=== PATIENT | male | born 1945 | race Caucasian/White ===

== ENCOUNTER 2017-09-03 18:21 | Inpatient (IN) | payer MEDICARE, OTHER ==
[~2017-09-03] VITALS: Ht 190.5 cm; Wt 90.3 kg
[2017-09-03] VITALS (9 sets, daily range): BP systolic 165–231; BP diastolic 78–115; PULSE 54–75; RESP 16–18; TEMP 98–98.9; O2SAT 94–99
[~2017-09-03 18:21] MED LIST: ASPI325T PO; ASPI81 PO; TAB-TAB PO
[2017-09-03] MEDS ORDERED: SODIUM CHLORIDE 0.9% FLUSH 10 ML FLUSH IVF PRN (19:00)
--- NOTE | 2017-09-03 19:10 | RADRPT ---
EXAM DATE/TIME: 09/03/2017 19:03 [facility] COMPARISON: No previous studies available for comparison. INDICATIONS : Possible CVA, confusion. MEDICAL HISTORY : None. SURGICAL HISTORY : None. ENCOUNTER: Initial ACUITY: 1 day PAIN SCORE: 0/10 LOCATION: Bilateral chest FINDINGS: A single view of the chest demonstrates the lungs to be symmetrically aerated without evidence of mas s, infiltrate or effusion. Superimposition of bowel over the right hemidiaphragm. The cardiomediastin al contours are unremarkable. Osseous structures are intact. CONCLUSION: No acute disease. Momo Rebollar MD on September 03, 2017 at 19:08 Board Certified Radiologist. This report was verified electronically.
--- NOTE | 2017-09-03 19:34 | RADRPT ---
EXAM DATE/TIME: 09/03/2017 19:03 [facility] COMPARISON: No previous studies available for comparison. INDICATIONS : Transient ischemic attack. MEDICAL HISTORY : Transient global amnesia two years ago. Caffeine use. SURGICAL HISTORY : Appendectomy. ENCOUNTER: Initial ACUITY: 1 day PAIN SCORE: 0/10 LOCATION: Bilateral neck PEAK SYSTOLIC VELOCITIES (cm/sec): ICA/CCA RATIO: Right: 0.8 Left: 0.7 ICA: Right: 92.7 Left: 88.8 CCA: Right: 110.8 Left: 125.3 ECA: Right: 164.5 Left: 148.9 VERTEBRAL: Right: 87.7 antegrade Left: 70.8 antegrade Elevated flow velocities and ICA/CCA ratios have been found to correlate with increased degrees of vessel stenosis, calculated as percentage of diameter relative to a normal segment of distal ICA/CCA FINDINGS: RIGHT CAROTID: No significant stenosis is visualized. Scattered mild to moderate plaque. The waveforms are within n ormal limits. LEFT CAROTID: No significant stenosis is visualized. Scattered mild to moderate plaque. The waveforms are within no rmal limits. VERTEBRAL ARTERIES: Antegrade flow is seen in both vertebral arteries. MISCELLANEOUS: None. CONCLUSION: No hemodynamically significant stenosis in either carotid artery. Momo Rebollar MD on September 03, 2017 at 19:31 Board Certified Radiologist. This report was verified electronically.
--- NOTE | 2017-09-03 19:57 | PD ---
HPI Chief Complaint: Neuro Symptoms/ Deficits Time Seen by Provider: 18:36 Travel History International Travel<30 days: No Contact w/Intl Traveler<30days: No Traveled to known affect area: No History of Present Illness HPI Patient is a 71-year-old male presenting to emergency department for evaluation of nausea, brief episodes of confusion and a sense of impending doom patient states that last night he had a brief episode of nausea followed by a few seconds of not knowing where he was or what he was doing. This resolved and recurred this morning when he was getting his mail from the mailbox. Then while driving this afternoon he again felt that abrupt onset of nausea followed by 2-4 seconds of not knowing where he was. It happened again this afternoon while he was sitting in his study, it lasted a little bit longer this time and that is when he stated that he just didn't feel right but he couldn't put his finger on it. He denies any nausea, vomiting, chest pain, headache, visual changes, dizziness, abdominal pain. Patient denies any new stressors, sleep disturbance, appetite disturbance, new medications. He denies any significant past medical history, he exercises daily. He does have a history of transient global amnesia several years ago but states this is different in that he never experienced nausea or confusion. When the amnesic event occurred in the past he would not remember what he had done prior to the event occurring. PFSH Past Medical History Medical History: Denies Significant Hx Cancer: No Cardiovascular Problems: No Diminished Hearing: No Endocrine: No Genitourinary: No Immune Disorder: No Musculoskeletal: No Neurologic: Yes (transient global amnesia appox 2 yrs ago ) Psychiatric: No Reproductive: No Respiratory: No Past Surgical History Abdominal Surgery: Yes (APPENDECTOMY) Appendectomy: Yes Other Surgery: Yes Social History Alcohol Use: No Tobacco Use: No Substance Use: No Allergies-Medications (Allergen,Severity, Reaction): Coded Allergies: No Known Allergies (Verified Adverse Reaction, Unknown, 09/03/17) Reported Meds & Prescriptions Reported Meds & Active Scripts Active Aspirin 325 Mg Tab 325 Mg PO DAILY 30 Days Reported Multivitamin (Multivitamins) 1 Tab Tab 1 Tab PO DAILY Aspirin 81 Mg Tab 81 Mg PO DAILY 2 TABS DAILY Review of Systems Except as stated in HPI: all other systems reviewed are Neg Eyes: No: Blurred Vision HENT: No: Headaches, Lightheadedness Cardiovascular: No: Chest Pain or Discomfort, Tachycardia Respiratory: No: Shortness of Breath Gastrointestinal: Positive: Nausea Genitourinary: No: Dysuria Musculoskeletal: No: Myalgias Skin: Positive Change in Pigmentation (flushed cheeks) Neurologic: Positive: Other (confusion), No: Weakness, Dizziness, Syncope, Focal Abnormalities Physical Exam Narrative GENERAL: Well-developed, well-nourished, alert elderly gentleman. Resting comfortably in no acute distress. SKIN: Warm and dry. Face appears flushed. HEAD: Atraumatic. Normocephalic. EYES: Pupils equal and round. No scleral icterus. No injection or drainage. ENT: No nasal bleeding or discharge. Mucous membranes pink and moist. NECK: Trachea midline. No JVD. CARDIOVASCULAR: Regular rate and rhythm. RESPIRATORY: No accessory muscle use. Clear to auscultation. Breath sounds equal bilaterally. GASTROINTESTINAL: Abdomen soft, non-tender, nondistended. Hepatic and splenic margins not palpable. MUSCULOSKELETAL: Extremities without clubbing, cyanosis, or edema. No obvious deformities. NEUROLOGICAL: Awake and alert. No obvious cranial nerve deficits. Motor grossly within normal limits. Five out of 5 muscle strength in the arms and legs. Normal speech. PSYCHIATRIC: Appropriate mood and affect; insight and judgment normal. Data Data Last Documented VS Vital Signs Date Time Temp Pulse Resp B/P (MAP) Pulse Ox O2 Delivery O2 Flow Rate FiO2 09/03/17 19:25 60 16 165/78 (107) 96 Room Air 09/03/17 18:23 98.0 Orders Orders Electrocardiogram (09/03/17 18:49) Prothrombin Time / Inr (Pt) (09/03/17 18:49) Act Partial Throm Time (Ptt) (09/03/17 18:49) Complete Blood Count With Diff (09/03/17 18:49) Comprehensive Metabolic Panel (09/03/17 18:49) Creatine Kinase (Cpk) (09/03/17 18:49) Troponin I (09/03/17 18:49) Urinalysis - C+S If Indicated (09/03/17 18:49) Ct Brain W/O Iv Contrast(Rout) (09/03/17 18:49) Chest, Single Ap (09/03/17 18:49) Ecg Monitoring (09/03/17 18:49) Iv Access Insert/Monitor (09/03/17 18:49) Oximetry (09/03/17 18:49) Sodium Chloride 0.9% Flush (Ns Flush) (09/03/17 19:00) Us Carotid Arteries Comp Bilat (09/03/17 ) Aspirin Chew (Aspirin Chew) (09/03/17 20:45) Nitroglycerin 2% Oint (Nitroglycerin 2% (09/03/17 20:45) Labs Laboratory Tests Test 09/03/17 19:00 White Blood Count 10.8 TH/MM3 Red Blood Count 5.36 MIL/MM3 Hemoglobin 15.9 GM/DL Hematocrit 47.1 % Mean Corpuscular Volume 87.8 FL Mean Corpuscular Hemoglobin 29.7 PG Mean Corpuscular Hemoglobin Concent 33.9 % Red Cell Distribution Width 14.0 % Platelet Count 171 TH/MM3 Mean Platelet Volume 10.5 FL Neutrophils (%) (Auto) 59.5 % Lymphocytes (%) (Auto) 35.4 % Monocytes (%) (Auto) 4.3 % Eosinophils (%) (Auto) 0.5 % Basophils (%) (Auto) 0.3 % Neutrophils # (Auto) 6.4 TH/MM3 Lymphocytes # (Auto) 3.8 TH/MM3 Monocytes # (Auto) 0.5 TH/MM3 Eosinophils # (Auto) 0.1 TH/MM3 Basophils # (Auto) 0.0 TH/MM3 CBC Comment DIFF FINAL Differential Comment Prothrombin Time 11.3 SEC Prothromb Time International Ratio 1.0 RATIO Activated Partial Thromboplast Time 27.2 SEC Blood Urea Nitrogen 18 MG/DL Creatinine 1.14 MG/DL Random Glucose 107 MG/DL Total Protein 8.2 GM/DL Albumin 4.0 GM/DL Calcium Level 9.0 MG/DL Alkaline Phosphatase 90 U/L Aspartate Amino Transf (AST/SGOT) 34 U/L Alanine Aminotransferase (ALT/SGPT) 35 U/L Total Bilirubin 0.5 MG/DL Sodium Level 135 MEQ/L Potassium Level 3.7 MEQ/L Chloride Level 100 MEQ/L Carbon Dioxide Level 27.5 MEQ/L Anion Gap 8 MEQ/L Estimat Glomerular Filtration Rate 63 ML/MIN Total Creatine Kinase 172 U/L Troponin I 0.14 NG/ML MDM Medical Decision Making Medical Screen Exam Complete: Yes Emergency Medical Condition: Yes Medical Record Reviewed: Yes Interpretation(s) Laboratory Tests Test 09/03/17 19:00 White Blood Count 10.8 TH/MM3 Red Blood Count 5.36 MIL/MM3 Hemoglobin 15.9 GM/DL Hematocrit 47.1 % Mean Corpuscular Volume 87.8 FL Mean Corpuscular Hemoglobin 29.7 PG Mean Corpuscular Hemoglobin Concent 33.9 % Red Cell Distribution Width 14.0 % Platelet Count 171 TH/MM3 Mean Platelet Volume 10.5 FL Neutrophils (%) (Auto) 59.5 % Lymphocytes (%) (Auto) 35.4 % Monocytes (%) (Auto) 4.3 % Eosinophils (%) (Auto) 0.5 % Basophils (%) (Auto) 0.3 % Neutrophils # (Auto) 6.4 TH/MM3 Lymphocytes # (Auto) 3.8 TH/MM3 Monocytes # (Auto) 0.5 TH/MM3 Eosinophils # (Auto) 0.1 TH/MM3 Basophils # (Auto) 0.0 TH/MM3 CBC Comment DIFF FINAL Differential Comment Prothrombin Time 11.3 SEC Prothromb Time International Ratio 1.0 RATIO Activated Partial Thromboplast Time 27.2 SEC Blood Urea Nitrogen 18 MG/DL Creatinine 1.14 MG/DL Random Glucose 107 MG/DL Total Protein 8.2 GM/DL Albumin 4.0 GM/DL Calcium Level 9.0 MG/DL Alkaline Phosphatase 90 U/L Aspartate Amino Transf (AST/SGOT) 34 U/L Alanine Aminotransferase (ALT/SGPT) 35 U/L Total Bilirubin 0.5 MG/DL Sodium Level 135 MEQ/L Potassium Level 3.7 MEQ/L Chloride Level 100 MEQ/L Carbon Dioxide Level 27.5 MEQ/L Anion Gap 8 MEQ/L Estimat Glomerular Filtration Rate 63 ML/MIN Total Creatine Kinase 172 U/L Troponin I 0.14 NG/ML Last Impressions Head CT 09/03/[id number] Signed Impressions: Service Date/Time: Sunday, September 03, 2017 19:34 - CONCLUSION: Unremarkable CT brain. No change. oMmo Rebollar MD Chest X-Ray 09/03/[id number] Signed Impressions: Service Date/Time: Sunday, September 03, 2017 19:03 - CONCLUSION: No acute disease. Momo Rebollar MD Carotid Artery Ultrasound 09/03/17 0000 Signed Impressions: Service Date/Time: Sunday, September 03, 2017 19:03 - CONCLUSION: No hemodynamically significant stenosis in either carotid artery. Momo Rebollar MD Vital Signs Date Time Temp Pulse Resp B/P (MAP) Pulse Ox O2 Delivery O2 Flow Rate FiO2 09/03/17 19:25 60 16 165/78 (107) 96 Room Air 09/03/17 18:52 63 194/94 (127) 09/03/17 18:45 75 18 231/115 (153) 99 Room Air 09/03/17 18:23 98.0 64 16 210/98 (135) 99 Room Air Differential Diagnosis ACC vs CVA versus ICH versus NSTEMI VS other Narrative Course Pt presented for evaluation after several episodes of abrupt nausea followed by confusion that lasted for 4-6 seconds, this evening it lasted longer and patient had an impending sense of doom. Pt was markedly hypertensive on arrival with no past history. Labs and imaging ordered and pending. Initial EKG read by my attending shows sinus bradycardia with a rate of 56. CXR is negative CT of the brain is unremarkable. Carotid US with no hemodynamically significant stenosis in either carotid artery. CBC is unremarkable Troponin is 0.14, chemistry is otherwise unremarkable. ASA 324mg and nitropaste ordered. Discussed findings with patient and . Also discussed with my attending physician. Dr. Corbin accepted admission, orders placed. Diagnosis Primary Impression: Hypertensive emergency Additional Impression: NSTEMI (non-ST elevated myocardial infarction) Admitting Information Admitting Physician Requests: Admit Condition: Stable DanielTracey rochaLacey ARNP Sep 03, 2017 19:57
--- NOTE | 2017-09-03 20:01 | RADRPT ---
EXAM DATE/TIME: 09/03/2017 19:34 [facility] COMPARISON: CT BRAIN W/O CONTRAST, August 24, 2011, 17:25. INDICATIONS : Altered mental status. RADIATION DOSE: 56.35 CTDIvol (mGy) MEDICAL HISTORY : None SURGICAL HISTORY : None. ENCOUNTER: Initial ACUITY: 1 day PAIN SCALE: 0/10 LOCATION: cranial TECHNIQUE: Multiple contiguous axial images were obtained of the head. Using automated exposure control and adj ustment of the mA and/or kV according to patient size, radiation dose was kept as low as reasonably a chievable to obtain optimal diagnostic quality images. DICOM format image data is available electro nically for review and comparison. FINDINGS: CEREBRUM: The ventricles are normal for age. No evidence of midline shift, mass lesion, hemorrhage or acute in farction. No extra-axial fluid collections are seen. POSTERIOR FOSSA: The cerebellum and brainstem are intact. The 4th ventricle is midline. The cerebellopontine angle i s unremarkable. EXTRACRANIAL: The visualized portion of the orbits is intact. SKULL: The calvaria is intact. No evidence of skull fracture. CONCLUSION: Unremarkable CT brain. No change. Momo Rebollar MD on September 03, 2017 at 19:58 Board Certified Radiologist. This report was verified electronically.
[2017-09-03 20:03] LABS: AUTOMATED NEUTROPHIL # 6.4 TH/MM3 (1.8-7.7); BASOPHIL % 0.3 % (0.0-2.0); EOSINOPHIL # 0.1 TH/MM3 (0-0.4); EOSINOPHIL % 0.5 % (0.0-4.0); HEMATOCRIT 47.1 % (39.0-51.0); HEMO FLAGS DIFF FINAL; LYMPH % 35.4 % (9.0-44.0); LYMPHOCYTE # 3.8 TH/MM3 (1.0-4.8); MEAN CELL VOLUME 87.8 FL (80.0-100.0); MEAN CORPUSCULAR HEMOGLOBIN 29.7 PG (27.0-34.0); MEAN CORPUSCULAR HGB CONC 33.9 % (32.0-36.0); MONO % 4.3 % (0.0-8.0); NEUT % 59.5 % (16.0-70.0); PLATELET COUNT 171 TH/MM3 (150-450); RED BLOOD COUNT 5.36 MIL/MM3 (4.50-5.90); WHITE BLOOD COUNT 10.8 TH/MM3 (4.0-11.0)
[2017-09-03 20:18] LABS: APTT (PATIENT) 27.2 SEC (24.3-30.1); PROTHROMBIN TIME - PATIENT 11.3 SEC (9.8-11.6)
[2017-09-03 20:32] LABS: ANION GAP 8 MEQ/L (5-15); AST (GOT) 34 U/L (15-37); BICARBONATE 27.5 MEQ/L (21.0-32.0); BLOOD UREA NITROGEN 18 MG/DL (7-18); CHLORIDE 100 MEQ/L (98-107); GLOMERULAR FILTRATION RATE 63 ML/MIN (>89); POTASSIUM 3.7 MEQ/L (3.5-5.1); SODIUM (NA) 135 MEQ/L (136-145)
[2017-09-03 20:34] LABS: ALKALINE PHOSPHATASE 90 U/L (45-117); ALT (GPT) 35 U/L (12-78); CREATINE KINASE 172 U/L (39-308); TOTAL BILIRUBIN ADULT 0.5 MG/DL (0.2-1.0)
[2017-09-03] MEDS ORDERED: ASPIRIN 81 MG CHEW TAB CHEW ONE (20:45)
[2017-09-03] MEDS ORDERED: NITROGLYCERIN 2% OINT 1 GM PACKET TOPICAL ONE (20:45)
[2017-09-03] MEDS ORDERED: SODIUM CHLORIDE 0.9% FLUSH 10 ML FLUSH IV FLUSH PRN (21:00)
[2017-09-03] MEDS: SODIUM CHLORIDE 0.9% FLUSH 10 ML FLUSH IV FLUSH SCH (21:21)
[2017-09-03] MEDS ORDERED: MULTTAB4 (21:59)
[2017-09-03] MEDS ORDERED: ASPI81CH7 PO (21:59)
[2017-09-03] MEDS: SODIUM CHLOR 0.9% 1000 ML INJ 1,000 ML IV SCH (23:45)
[2017-09-03] MEDS ORDERED: hydrALAZINE HCL 20 MG/ML VIAL IV PUSH PRN (23:45)
--- NOTE | 2017-09-03 23:46 | HHI.HP ---
[facility] Service Family Medicine Primary Care Physician [place] MD Admission Diagnosis NSTEMI, HYPERTENSIVE EMERGENCY Diagnoses: International Travel<30 Days: No Contact w/Intl Traveler<30days: No Known Affected Area: No History of Present Illness 71-year-old male presents to the emergency department for 2 episodes of confusion with accompanying nausea. The patient reports yesterday when he was walking to his mailbox he felt nausea and an overwhelming sense of doom followed by immediate confusion that spontaneously resolved. He experienced a similar sensation this afternoon when driving back from shopping with his . He reports he instantaneously became nauseated and felt confused, he couldn't remember where he was driving. The sensation lasted approximately 2-4 seconds and then resolved. He denies any chest pain or shortness of breath. He has no past medical history and exercises daily. On evaluation in the emergency department he was found to have a troponin of 0.14 and a blood pressure of 231/ 115. He states he takes his blood pressure regularly and it is usually 111 systolic. EKG showed normal sinus rhythm without ST segment elevations or depressions. Head CT negative for acute disease. Carotid ultrasound without stenosis bilaterally. Review of Systems Other Denies fever or chills Denies blurry vision, otorrhea, rhinorrhea Denies sore throat and cough No chest pain, palpitations, shortness of breath No abdominal pain Denies constipation/diarrhea/vomiting. Positive nausea Denies muscle pain/weakness No rashes Past Family Social History Past Medical History None Past Surgical History Appendectomy Reported Medications Reported Meds & Active Scripts Active Reported Multi Vitamin Mens (Multiple Vitamin) 1 Tab Tab Aspirin Children's (Aspirin) 81 Mg Chew 81 Mg PO DAILY Allergies: Coded Allergies: No Known Allergies (Verified Allergy, Unknown, 09/03/17) Family History No family history of heart disease or diabetes mellitus Social History Never smoker. No alcohol, illicit drugs Physical Exam Vital Signs Vital Signs Date Time Temp Pulse Resp B/P (MAP) Pulse Ox O2 Delivery O2 Flow Rate FiO2 09/03/17 21:56 09/03/17 21:30 61 16 182/88 (119) 95 Room Air 09/03/17 20:30 64 16 191/89 (123) 94 Room Air 09/03/17 19:25 60 16 165/78 (107) 96 Room Air 09/03/17 18:52 63 194/94 (127) 09/03/17 18:45 75 18 231/115 (153) 99 Room Air 09/03/17 18:23 98.0 64 16 210/98 (135) 99 Room Air Physical Exam GENERAL: male sitting up in chair SKIN: No rashes, ecchymoses or lesions. Cool and dry. HEAD: Atraumatic. Normocephalic. No temporal or scalp tenderness. EYES: Pupils equal round and reactive. Extraocular motions intact. No scleral icterus. No injection or drainage. ENT: Nose without bleeding, purulent drainage or septal hematoma. Throat without erythema, tonsillar hypertrophy or exudate. Uvula midline. Airway patent. NECK: Trachea midline. No JVD or lymphadenopathy. Supple, nontender, no meningeal signs. CARDIOVASCULAR: Regular rate and rhythm without murmurs, gallops, or rubs. RESPIRATORY: Clear to auscultation. Breath sounds equal bilaterally. No wheezes , rales, or rhonchi. GASTROINTESTINAL: Abdomen soft, non-tender, nondistended. No hepato-splenomegaly , or palpable masses. No guarding. MUSCULOSKELETAL: Extremities without clubbing, cyanosis, or edema. No joint tenderness, effusion, or edema noted. No calf tenderness. Negative Homans sign bilaterally. NEUROLOGICAL: Awake and alert. Cranial nerves II through XII intact. Motor and sensory grossly within normal limits. Normal speech. Laboratory Laboratory Tests Test 09/03/17 19:00 09/03/17 21:25 White Blood Count 10.8 Red Blood Count 5.36 Hemoglobin 15.9 Hematocrit 47.1 Mean Corpuscular Volume 87.8 Mean Corpuscular Hemoglobin 29.7 Mean Corpuscular Hemoglobin Concent 33.9 Red Cell Distribution Width 14.0 Platelet Count 171 Mean Platelet Volume 10.5 Neutrophils (%) (Auto) 59.5 Lymphocytes (%) (Auto) 35.4 Monocytes (%) (Auto) 4.3 Eosinophils (%) (Auto) 0.5 Basophils (%) (Auto) 0.3 Neutrophils # (Auto) 6.4 Lymphocytes # (Auto) 3.8 Monocytes # (Auto) 0.5 Eosinophils # (Auto) 0.1 Basophils # (Auto) 0.0 CBC Comment DIFF FINAL Differential Comment Prothrombin Time 11.3 Prothromb Time International Ratio 1.0 Activated Partial Thromboplast Time 27.2 Blood Urea Nitrogen 18 Creatinine 1.14 Random Glucose 107 Total Protein 8.2 Albumin 4.0 Calcium Level 9.0 Alkaline Phosphatase 90 Aspartate Amino Transf (AST/SGOT) 34 Alanine Aminotransferase (ALT/SGPT) 35 Total Bilirubin 0.5 Sodium Level 135 Potassium Level 3.7 Chloride Level 100 Carbon Dioxide Level 27.5 Anion Gap 8 Estimat Glomerular Filtration Rate 63 Total Creatine Kinase 172 Troponin I 0.14 B-Type Natriuretic Peptide 13 Result Diagram: 09/03/17189909/03/171899 Caprini VTE Risk Assessment Caprini VTE Risk Assessment: Mod/High Risk (score >= 2) Caprini Risk Assessment Model Point Value = 1 Point Value = 2 Point Value = 3 Point Value = 5 Age 41-60 Minor surgery BMI > 25 kg/m2 Swollen legs Varicose veins or History of unexplained or recurrent spontaneous Oral contraceptives or hormone replacement Sepsis (< 1 month) Serious lung disease, including pneumonia (< 1 month) Abnormal pulmonary function Acute myocardial infarction Congestive heart failure (< 1 month) History of inflammatory bowel disease Medical patient at bed rest Age 61-74 Arthroscopic surgery Major open surgery (> 45 min) Laparoscopic surgery (> 45 min) Malignancy Confined to bed (> 72 hours) Immobilizing plaster cast Central venous access Age >= 75 History of VTE Family history of VTE Factor V Leiden Prothrombin [id number] Lupus anticoagulant Anticardiolipin antibodies Elevated serum homocysteine Heparin-induced thrombocytopenia Other congenital or acquired thrombophilia Stroke (< 1 month) Elective arthroplasty Hip, pelvis, or leg fracture Acute spinal cord injury (< 1 month) Prophylaxis Regimen Total Risk Factor Score Risk Level Prophylaxis Regimen 0-1 Low Early ambulation 2 Moderate Order ONE of the following: *Sequential Compression Device (SCD) *Heparin 5000 units SQ BID 3-4 Higher Order ONE of the following medications: *Heparin 5000 units SQ TID *Enoxaparin/Lovenox 40 mg SQ daily (WT < 150 kg, CrCl > 30 mL/min) *Enoxaparin/Lovenox 30 mg SQ daily (WT < 150 kg, CrCl > 10-29 mL/min) *Enoxaparin/Lovenox 30 mg SQ BID (WT < 150 kg, CrCl > 30 mL/min) AND/OR *Sequential Compression Device (SCD) 5 or more Highest Order ONE of the following medications: *Heparin 5000 units SQ TID (Preferred with Epidurals) *Enoxaparin/Lovenox 40 mg SQ daily (WT < 150 kg, CrCl > 30 mL/min) *Enoxaparin/Lovenox 30 mg SQ daily (WT < 150 kg, CrCl > 10-29 mL/min) *Enoxaparin/Lovenox 30 mg SQ BID (WT < 150 kg, CrCl > 30 mL/min) AND *Sequential Compression Device (SCD) Assessment and Plan Assessment and Plan 71-year-old male with no significant past medical history presents with multiple episodes of nausea and confusion. Troponin elevated in the emergency department. 1. Elevated troponin EKG showed normal sinus rhythm without ST segment elevations or depressions, reviewed by wv Troponin 0.14 ACS workup pending; serial troponins/EKGs If troponin further elevates, will start heparin drip 2. Hypertensive crisis Hydralazine when necessary Monitor Patient does not have a history of HTN 3. Nausea/confusion Unclear etiology, cardiac vs neurologic in origin Head CT negative for acute intracranial process Patient with history of global amnesia Carotid US negative MRI/MRA brain pending ECHO pending FEN NPO NS at 84 cc/hr Electrolytes: monitor and replete prn Heparin Case discussed with ER physician at length Physician Certification 2 Midnight Certification Type: Admission for Inpatient Services Order for Inpatient Services The services are ordered in accordance with Medicare regulations or non- Medicare payer requirements, as applicable. In the case of services not specified as inpatient-only, they are appropriately provided as inpatient services in accordance with the 2-midnight benchmark. Estimated LOS (days): 2 2 days is the estimated time the patient will need to remain in the hospital, assuming treatment plan goals are met and no additional complications. Post-Hospital Plan: Not yet determined Sakshi Corbin MD Sep 03, 2017 23:46
[2017-09-04] VITALS (10 sets, daily range): BP systolic 140–186; BP diastolic 65–87; PULSE 50–71; RESP 16–20; TEMP 97.7–97.9; O2SAT 93–97
[2017-09-04 02:01] LABS: AUTOMATED NEUTROPHIL # 5.6 TH/MM3 (1.8-7.7); BASOPHIL % 0.4 % (0.0-2.0); EOSINOPHIL # 0.1 TH/MM3 (0-0.4); HEMATOCRIT 43.1 % (39.0-51.0); HEMO FLAGS DIFF FINAL; LYMPH % 33.8 % (9.0-44.0); LYMPHOCYTE # 3.2 TH/MM3 (1.0-4.8); MEAN CELL VOLUME 88.3 FL (80.0-100.0); MEAN CORPUSCULAR HEMOGLOBIN 29.9 PG (27.0-34.0); MEAN CORPUSCULAR HGB CONC 33.9 % (32.0-36.0); MONO % 6.2 % (0.0-8.0); NEUT % 58.6 % (16.0-70.0); PLATELET COUNT 149 TH/MM3 (150-450); RED BLOOD COUNT 4.89 MIL/MM3 (4.50-5.90); WHITE BLOOD COUNT 9.6 TH/MM3 (4.0-11.0)
[2017-09-04 02:26] LABS: BICARBONATE 30.1 MEQ/L (21.0-32.0); POTASSIUM 3.5 MEQ/L (3.5-5.1)
[2017-09-04 02:29] LABS: HDL CHOLESTEROL 36.2 MG/DL (40.0-60.0)
[2017-09-04] MEDS: NITROGLYCERIN 2% OINT 1 GM PACKET TOPICAL SCH ×5 (03:14→23:38)
--- NOTE | 2017-09-04 05:07 | EKG ---
Date Performed: 09/03/2017 Time Performed: 19:26:31 PTAGE: 71 years EKG: Baseline artifact present SINUS BRADYCARDIA BORDERLINE ECG No significant change from prior electrocardiogram. PREVIOUS TRACING : 08/25/2011 07.49 DOCTOR: Frederick Hsu Interpretating Date/Time 09/04/2017 05:07:26
[2017-09-04] MEDS: HEPARIN SODIUM - SQ 10,000 UNITS/ML VIAL SQ SCH ×3 (05:39→21:15)
[2017-09-04] MEDS: SODIUM CHLORIDE 0.9% FLUSH 10 ML FLUSH IV FLUSH SCH ×2 (08:02→21:00)
[2017-09-04] MEDS: ASPIRIN 325 MG TAB PO SCH (08:04)
--- NOTE | 2017-09-04 09:14 | EKG ---
Date Performed: 09/04/2017 Time Performed: 07:28:28 PTAGE: 71 years EKG: SINUS BRADYCARDIA BORDERLINE ECG No significant change from prior electrocardiogram. PREVIOUS TRACING : 09/03/2017 19.26 DOCTOR: Frederick Hsu Interpretating Date/Time 09/04/2017 09:13:15
[2017-09-04] MEDS: SODIUM CHLOR 0.9% 1000 ML INJ 1,000 ML IV SCH (13:24)
--- NOTE | 2017-09-04 13:57 | ECHRPT ---
Indication: CVA/TIA CONCLUSIONS The left ventricular systolic function is normal with an estimated ejection fraction in the range of 60-65%. Wall thickness is normal. Normal left ventricular size. There is trace tricuspid valve regurgitation. The estimated pulmonary arterial pressure is 24.9 mmHg. Czzry-tr-goyb mitral valve regurgitation. BP: 145 / 74 HR: 52 Rhythm: Other MEASUREMENTS (Male / Female) Normal Values Technical Quality:Fair 2D ECHO LV Diastolic Diameter PLAX 4.5 cm 4.2 - 5.9 / 3.9 - 5.3 cm LV Systolic Diameter PLAX 3.3 cm IVS Diastolic Thickness 1.0 cm 0.6 - 1.0 / 0.6 - 0.9 cm LVPW Diastolic Thickness 1.0 cm 0.6 - 1.0 / 0.6 - 0.9 cm LV Relative Wall Thickness 0.4 LVOT Diameter 2.0 cm M-MODE Aortic Root Diameter MM 3.0 cm LA Systolic Diameter MM 3.2 cm LA Ao Ratio MM 1.1 AV Cusp Separation MM 2.0 cm DOPPLER AV Peak Velocity 155.0 cm/s AV Peak Gradient 9.6 mmHg LVOT Peak Velocity 109.0 cm/s LVOT Peak Gradient 4.8 mmHg AV Area Cont Eq pk 2.2 cm MR Peak Velocity 223.0 cm/s MR Peak Gradient 19.9 mmHg Mitral E Point Velocity 79.0 cm/s Mitral A Point Velocity 36.5 cm/s Mitral E to A Ratio 2.2 LV E' Lateral Velocity 13.5 cm/s Mitral E to LV E' Lateral Ratio 5.9 LV E' Septal Velocity 8.0 cm/s Mitral E to LV E' Septal Ratio 9.9 TR Peak Velocity 193.0 cm/s TR Peak Gradient 14.9 mmHg Right Atrial Pressure 10.0 mmHg Pulmonary Artery Systolic Pressu 24.9 mmHg Right Ventricular Systolic Press 24.9 mmHg PV Peak Velocity 105.0 cm/s PV Peak Gradient 4.4 mmHg FINDINGS LEFT VENTRICLE The left ventricular systolic function is normal with an estimated ejection fraction in the range of 60-65%. Wall thickness is normal. Normal left ventricular size. RIGHT VENTRICLE Normal right ventricular size and systolic function. LEFT ATRIUM The left atrial size is normal. RIGHT ATRIUM The right atrial size is normal. ATRIAL SEPTUM Normal atrial septal thickness without atrial level shunting by limited color doppler interrogation. AORTA The aortic root and proximal ascending aorta are normal in size on limited imaging. MITRAL VALVE [id number] mitral valve regurgitation. AORTIC VALVE Trileaflet aortic valve. No aortic valve stenosis or regurgitation. TRICUSPID VALVE There is trace tricuspid valve regurgitation. The estimated pulmonary arterial pressure is 24.9 mmHg. PULMONARY VALVE No pulmonary valve regurgitation or stenosis. VESSELS The inferior vena cava is normal in size. PERICARDIUM No pericardial effusion. Prieto Valles MD, FACC, [facility] [place] (Electronically Signed) Final Date:04 September 2017 13:55
--- NOTE | 2017-09-04 17:04 | RADRPT ---
EXAM DATE/TIME: 09/04/2017 16:15 [facility] COMPARISON: No previous studies available for comparison. INDICATIONS : 2 episodes of confusion with accompanying nausea. MEDICAL HISTORY : None. SURGICAL HISTORY : Appendectomy. PTERYGIUM REMOVED FROM EYE ENCOUNTER: Subsequent ACUITY: 2 day PAIN SCORE: 0/10 LOCATION: cranial Please note a normal MRA of the brain does not entirely exclude the possibility of a small aneurysm, nor the possibility of distal intracranial vessel disease. TECHNIQUE: 3D time of flight MRA was performed. Source images, multiplanar STS MIP, and 3D volume MIP reconstru ctions were reviewed. 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 Origin of the r ight posterior cerebral artery is . The right vertebral artery is diminutive. There is no eviden ce of major vessel occlusion or stenosis. No aneurysm or vascular malformation is identified. CONCLUSION: No acute [place] vascular findings Gerald Kate MD on September 04, 2017 at 17:00 Board Certified Radiologist. This report was verified electronically.
--- NOTE | 2017-09-04 17:06 | RADRPT ---
EXAM DATE/TIME: 09/04/2017 16:15 [facility] COMPARISON: CT BRAIN W/O CONTRAST, September 03, 2017, 19:34. INDICATIONS : 2 episodes of confusion with accompanying nausea. MEDICAL HISTORY : None. SURGICAL HISTORY : Appendectomy. Pterygium removed from eye ENCOUNTER: Subsequent ACUITY: 2 day PAIN SCORE: 0/10 LOCATION: cranial TECHNIQUE: Multiplanar, multisequence MRI of the brain was performed without contrast. FINDINGS: CEREBRUM: The ventricles are normal for age. No evidence of midline shift, mass lesion, hemorrhage or acute in farction. No extraaxial fluid collections are seen. The pituitary gland and suprasellar cistern are normal in configuration. WHITE MATTER: No significant signal abnormalities are seen in the white matter. POSTERIOR FOSSA: The cerebellum and brainstem are intact. The 4th ventricle is midline. The cerebellopontine angle is unremarkable. The cerebellar tonsils are normal in position. DIFFUSION IMAGING: No focal areas of restricted diffusion are seen. No evidence of acute infarction. EXTRACRANIAL: There is mucosal disease present in the left maxillary sinus.. CONCLUSION: No acute intracranial findings. Gerald Kate MD on September 04, 2017 at 17:02 Board Certified Radiologist. This report was verified electronically.
--- NOTE | 2017-09-04 17:51 | HHI.PR ---
Subjective Remarks Patient denies cp/sob. Denies confusion or dizziness. Denies headache. Objective Vitals Vital Signs Date Time Temp Pulse Resp B/P (MAP) Pulse Ox O2 Delivery O2 Flow Rate FiO2 09/04/17 12:30 55 09/04/17 12:00 97.9 50 20 144/70 (94) 93 09/04/17 08:00 53 09/04/17 08:00 97.8 54 20 170/81 (110) 93 09/04/17 08:00 Room Air 09/04/17 04:03 52 09/04/17 04:00 97.8 52 18 145/74 (97) 97 09/04/17 00:00 97.7 51 18 143/72 (95) 95 09/03/17 23:48 55 09/03/17 22:55 Room Air 09/03/17 22:55 58 09/03/17 21:56 09/03/17 21:54 98.9 54 18 177/86 (116) 97 09/03/17 21:30 61 16 182/88 (119) 95 Room Air 09/03/17 20:30 64 16 191/89 (123) 94 Room Air 09/03/17 20:00 Room Air 09/03/17 19:25 60 16 165/78 (107) 96 Room Air 09/03/17 18:52 63 194/94 (127) 09/03/17 18:45 75 18 231/115 (153) 99 Room Air 09/03/17 18:23 98.0 64 16 210/98 (135) 99 Room Air I/O 09/03/17 09/03/17 09/03/17 09/04/17 09/04/17 09/04/17 07:00 15:00 23:00 07:00 15:00 23:00 Intake Total 515 ml Output Total 0 ml Balance 515 ml Intake Oral 0 ml IV Total 515 ml Output Urine Total 0 ml # Voids 2 # Bowel Movements 0 Result Diagram: 09/04/1713809/04/17138 Imaging Last Impressions Head Magnetic Resonance Angiography 09/04/17 0000 Signed Impressions: Service Date/Time: Monday, September 04, 2017 16:15 - CONCLUSION: No acute [place] vascular findings Gerald Kate MD Brain MRI 09/04/17 0000 Signed Impressions: Service Date/Time: Monday, September 04, 2017 16:15 - CONCLUSION: No acute intracranial findings. Gerald Kate MD Head CT [id number]/03/[id number] Signed Impressions: Service Date/Time: Sunday, September 03, 2017 19:34 - CONCLUSION: Unremarkable CT brain. No change. Momo Rebollar MD Chest X-Ray 09/03/171848 Signed Impressions: Service Date/Time: Sunday, September 03, 2017 19:03 - CONCLUSION: No acute disease. Momo Rebollar MD Carotid Artery Ultrasound 09/03/17 0000 Signed Impressions: Service Date/Time: Sunday, September 03, 2017 19:03 - CONCLUSION: No hemodynamically significant stenosis in either carotid artery. Momo Rebollar MD Objective Remarks AAOx3 PERRLA Clear lungs BL S1S2 RRR, no MRG abdomen soft, nt, nd Medications and IVs Current Medications Medications (Trade) Dose Ordered Sig/Raul Route Start Time Stop Time Status Last Admin (NS Flush) 2 ml BID IV FLUSH 09/03/17 21:00 09/03/17 21:21 (NS Flush) 2 ml UNSCH PRN IV FLUSH 09/03/17 21:00 (Aspirin) 325 mg DAILY PO 09/04/17 09:00 09/04/17 08:04 (Nitroglycerin 2% Oint) 0.5 inch Q6HR TOPICAL 09/04/17 03:00 09/04/17 17:21 (Heparin Inj) 5,000 units Q8HR SQ 09/04/17 06:00 09/04/17 13:24 (Apresoline Inj) 10 mg Q4H PRN IV PUSH 09/03/17 23:45 Sodium Chloride 1,000 ml @ 84 mls/hr [id number] IV 09/03/17 23:45 09/04/17 13:24 Urinary Catheter: No Vascular Central Line Catheter: No A/P Problem List: (1) Hypertensive emergency ICD Code: I16.1 - Hypertensive emergency Status: Acute Plan: Patient states he does not have history of hypertension. The patient actually has a log of his blood pressure medications taken at home. I reviewed the log and the patient has had normal blood pressures before. However, blood pressure elevated at 2:30 systolic over 1:15 diastolic on admission. Upon review of the blood pressure medications while hospitalized the blood pressure has remained elevated with a systolic blood pressure into the 170s. I will start the patient on antihypertensive medications. I will start the patient on amlodipine. (2) Encephalopathy ICD Code: G93.40 - Encephalopathy, unspecified Plan: Encephalopathy likely secondary to hypertensive emergency. However cannot rule out a TIA versus stroke. Initial CT of the head unremarkable. Head MRA did not show an acute [place] of [place] vascular findings. An brain MRI does not show any acute intracranial findings, ruling out ischemic stroke. (3) Elevated troponin ICD Code: R74.8 - Abnormal levels of other serum enzymes Plan: EKG showed normal sinus rhythm without ST segment elevations or depressions, reviewed by me Troponin went up from mostly stable from 0.14 - 0.15 - 0.16. The patient is chest pain-free and states he never had chest pain. Cardiology recommendations pending. Mejia Madrid MD Sep 04, 2017 17:51
--- NOTE | 2017-09-04 23:24 | MB ---
cc: ALBERTO CHONG DO DATE OF CONSULTATION September 04, 2017 REASON FOR CONSULTATION Elevated troponin. HISTORY OF PRESENT ILLNESS Marco Antonio Schofield is a pleasant 71-year-old male who presented to [facility] Emergency Room on September 04, 2017 due to two episodes of confusion. The patient states that he has had four similar episodes in the past. Three of them appeared to have happen this year with the last two happening over the past few days. Yesterday the patient was walking to his mailbox felt nauseous and then had immediate confusion which resolved after 5-6 seconds. He then had a similar sensation this afternoon when driving back from shopping with his . He felt overall nauseous and then said to her he did not know where he was and then after a few seconds realized what was going on and where he was. The other episode that happened earlier this year in October, the patient was in his bathroom and felt nauseous and then looked around, did not know where he was, looked at his and did not know who she was and then came back to a few seconds later. During these episodes he denies chest pain, shortness of breath or palpitations. On arrival he was found to have a blood pressure of 230/115 and looking over his blood pressures that he takes at home normally his systolic blood pressure is around 105-130. PAST MEDICAL HISTORY Denies. PAST SURGICAL HISTORY Appendectomy. ALLERGIES NO KNOWN DRUG ALLERGIES. MEDICATIONS 1. Aspirin 81 milligrams daily. 2. Multivitamin daily. FAMILY HISTORY Denies premature coronary artery disease or sudden cardiac within the family. SOCIAL HISTORY Denies tobacco, alcohol or drug abuse. REVIEW OF SYSTEMS 14-systems were reviewed including osteopathic, pertinent positives and negatives above otherwise negative. PHYSICAL EXAMINATION VITAL SIGNS: Temperature 97.9, heart rate 50, blood pressure 144/70, respirations 20, pulse ox 93% on room air. GENERAL: In general, the patient appears well in no acute distress, alert, awake and oriented x3. HEENT: Extraocular muscles intact. Mucous membranes moist. NECK: Supple. No JVD at 45 degrees. No carotid bruits noted bilaterally. Carotid upstroke is brisk in nature. HEART: Regular rate and rhythm. Positive first and second heart sounds with no noted murmurs, gallops or rubs. LUNGS: Clear to auscultation bilaterally. No wheezes, rales or rhonchi. ABDOMEN: Abdomen is soft, nontender, nondistended. No organomegaly noted. EXTREMITIES: Show no clubbing, cyanosis or edema. Femoral and distal pulses are intact bilaterally. NEUROLOGICALLY: No focal deficits. SKIN: Warm, dry and intact. OSTEOPATHIC: No kyphoscoliosis, lordosis or paraspinal tender points. LABORATORY FINDINGS Hemoglobin 14.6, hematocrit 43.1, platelets 149. Potassium 3.5, BUN 16, creatinine 0.97. Troponin 0.16, total cholesterol 188, LDL 125, HDL 36.2, triglycerides 133. CARDIOLOGY STUDIES Electrocardiogram (September 04, 2017) sinus bradycardia with no acute ST-T wave changes. Echocardiogram (September 04, 2017) ejection fraction 60-65%, trace tricuspid regurgitation, trace to mild mitral valve regurgitation. IMPRESSION 1. Unspecified encephalopathy. 2. Mildly elevated troponin. 3. Hypertensive emergency. 4. Normal ejection fraction on echocardiogram. 5. Asymptomatic bradycardia. RECOMMENDATIONS 1. Mr. Schofield presented with unusual symptom of nausea and then confusion. 2. I am unsure at this time what this may be due to and from a cardiovascular standpoint possible accelerated hypertension ___ arrhythmogenic. 3. He does have a mildly elevated troponin and this is most likely due to his accelerated hypertension but overall I think that he should undergo an ischemic evaluation with stress testing. 4. Would consider neurological evaluation even though MRI shows no acute process of the brain. 5. If inpatient work-up is negative the patient can follow-up outpatient for longer term ___ with either an event monitor or loop recorder as this may be potentiated by an arrhythmogenic cause. 6. Further recommendations will be made based on the hospital course. Thank you for allowing me to see Marco Antonio Schofield. If there are any questions please do not hesitate to call. Alberto Chong DO VGP/EO /10:51 PM /11:05 PM
[2017-09-05] VITALS: PULSE 53
[2017-09-05] MEDS: SODIUM CHLOR 0.9% 1000 ML INJ 1,000 ML IV SCH ×2 (03:03→13:55)
[2017-09-05 04:00] VITALS: PULSE 47
[2017-09-05 05:34] VITALS: BP 121/63; PULSE 61; RESP 16; TEMP 97.7; O2SAT 95
[2017-09-05] MEDS: NITROGLYCERIN 2% OINT 1 GM PACKET TOPICAL SCH ×3 (05:57→17:00)
[2017-09-05] MEDS: HEPARIN SODIUM - SQ 10,000 UNITS/ML VIAL SQ SCH ×2 (05:58→13:06)
[2017-09-05 08:00] VITALS: PULSE 62
[2017-09-05] MEDS: SODIUM CHLORIDE 0.9% FLUSH 10 ML FLUSH IV FLUSH SCH (08:01)
[2017-09-05] MEDS: ASPIRIN 325 MG TAB PO SCH (08:03)
[2017-09-05 08:19] VITALS: BP 164/75; PULSE 58; RESP 18; TEMP 98; O2SAT 94
[2017-09-05 12:30] VITALS: BP 129/66; PULSE 50; PULSE 96; RESP 19; TEMP 97.9; O2SAT 50; O2SAT 96
[2017-09-05] MEDS ORDERED: REGADENOSON INJ 0.4 MG/5 ML SYR ONE (15:17)
--- NOTE | 2017-09-05 17:16 | RADRPT ---
EXAM DATE/TIME: 09/05/2017 15:01 [facility] COMPARISON: No previous studies available for comparison. INDICATIONS : Chest pain for 1 day. Angina. DOSE: 26 mCi Tc99m Myoview at stress. 8.6 mCi Tc99m Myoview at rest. 0.4 mg Lexiscan STRESS SYMPTOMS: Chest pressure. EJECTION FRACTION: 70% MEDICAL HISTORY : Hypertension. SURGICAL HISTORY : None. ENCOUNTER: Initial ACUITY: 1 day PAIN SCALE: 2/10 LOCATION: Bilateral chest TECHNIQUE: The patient underwent pharmacologic stress with infusion of prescribed dose. Continuous ECG tracing was monitored during stress. Gated SPECT imaging was performed after stress and conventional SPECT i maging was performed at rest. The examination was performed on a SPECT/CT scanner, both attenuation and non-corrected datasets were reviewed. FINDINGS: DISTRIBUTION: The maximum perfused segment at stress is in the anterior wall. PERFUSION STUDY: The pattern of perfusion at stress is within normal limits. There is a summed stress score of zero. GATED STUDY: There is intact wall motion and thickening without hypokinetic or dyskinetic segments. CONCLUSION: 1. No fixed or reversible defects to suggest ischemia or infarction. 2. Normal wall motion and calculated ejection fraction. RISK CATEGORY: Low (<1% Annual Mortality Rate) Navin De Souza MD on September 05, 2017 at 17:12 Board Certified Radiologist. This report was verified electronically.
[2017-09-05] MEDS ORDERED: AMLO10 PO (17:40)
[2017-09-05] MEDS ORDERED: ASA325 PO (17:40)
--- NOTE | 2017-09-05 17:40 | HHI.DCPOC ---
Discharge Care Plan Diagnosis: (1) Encephalopathy (2) Hypertensive emergency (3) NSTEMI (non-ST elevated myocardial infarction) Goals to Promote Your Health * To prevent worsening of your condition and complications * To maintain your health at the optimal level Directions to Meet Your Goals Take your medications as prescribed Follow your dietary instruction Follow activity as directed Keep your appointments as scheduled Take your immunizations and boosters as scheduled If your symptoms worsen call your PCP, if no PCP go to Urgent Care Center or Emergency Room Smoking is Dangerous to Your Health. Avoid second hand smoke Call the 24-hour hour crisis hotline for domestic abuse at Mejia Madrid MD Sep 05, 2017 17:40
[2017-09-05] MEDS ORDERED: LIPI20TA PO (17:43)
[2017-09-05] MEDS ORDERED: ATORVASTATIN 20 MG TAB PO ONE (17:45)
--- NOTE | 2017-09-05 17:47 | HHI.DS ---
Discharge Summary Admission Date Sep 03, 2017 at 20:58 Discharge Date: Sep 05, 2017 Admitting Diagnosis NSTEMI, HYPERTENSIVE EMERGENCY (1) Hypertensive emergency ICD Code: I16.1 - Hypertensive emergency Diagnosis: Principal Status: Resolved (2) Encephalopathy ICD Code: G93.40 - Encephalopathy, unspecified Diagnosis: Principal Status: Resolved (3) Elevated troponin ICD Code: R74.8 - Abnormal levels of other serum enzymes Diagnosis: Principal Status: Acute (4) Transient confusion ICD Code: R41.0 - Disorientation, unspecified Diagnosis: Principal Status: Resolved (5) Hyperlipidemia ICD Code: E78.5 - Hyperlipidemia, unspecified Diagnosis: Principal Status: Acute Procedures nuclear stress testing Brief History - From Admission 71-year-old male presents to the emergency department for 2 episodes of confusion with accompanying nausea. The patient reports yesterday when he was walking to his mailbox he felt nausea and an overwhelming sense of doom followed by immediate confusion that spontaneously resolved. He experienced a similar sensation this afternoon when driving back from shopping with his . He reports he instantaneously became nauseated and felt confused, he couldn't remember where he was driving. The sensation lasted approximately 2-4 seconds and then resolved. He denies any chest pain or shortness of breath. He has no past medical history and exercises daily. On evaluation in the emergency department he was found to have a troponin of 0.14 and a blood pressure of 231/ 115. He states he takes his blood pressure regularly and it is usually 111 systolic. EKG showed normal sinus rhythm without ST segment elevations or depressions. Head CT negative for acute disease. Carotid ultrasound without stenosis bilaterally. CBC/BMP: 09/04/17 0139 09/04/17 0139 Significant Findings Laboratory Tests Test 09/03/17 19:00 09/03/17 21:25 09/04/17 01:39 09/04/17 07:33 Random Glucose 107 MG/DL (74-106) Sodium Level 135 MEQ/L (136-145) Estimat Glomerular Filtration Rate 63 ML/MIN (>89) 76 ML/MIN (>89) Troponin I 0.14 NG/ML (0.02-0.05) 0.15 NG/ML (0.02-0.05) 0.16 NG/ML (0.02-0.05) Platelet Count 149 TH/MM3 (150-450) LDL Cholesterol 125 MG/DL (0-99) HDL Cholesterol 36.2 MG/DL (40.0-60.0) Test 09/04/17 21:08 Troponin I 0.13 NG/ML (0.02-0.05) Imaging Last Impressions Myocardial Perfusion Scan Nuc Med 09/05/17 0600 Signed Impressions: Service Date/Time: August 15:01 - CONCLUSION: 1. No fixed or reversible defects to suggest ischemia or infarction. 2. Normal wall motion and calculated ejection fraction. RISK CATEGORY: Low (<1%% Annual Mortality Rate) Navin De Souza MD Head Magnetic Resonance Angiography 09/04/17 0000 Signed Impressions: Service Date/Time: Monday, September 04, 2017 16:15 - CONCLUSION: No acute [place] of [place] vascular findings Gerald Kate MD Brain MRI 09/04/17 0000 Signed Impressions: Service Date/Time: Monday, September 04, 2017 16:15 - CONCLUSION: No acute intracranial findings. Gerald Kate MD Head CT 09/03/171848 Signed Impressions: Service Date/Time: Sunday, September 03, 2017 19:34 - CONCLUSION: Unremarkable CT brain. No change. Momo Rebollar MD Chest X-Ray 09/03/171848 Signed Impressions: Service Date/Time: Sunday, September 03, 2017 19:03 - CONCLUSION: No acute disease. Momo Rebollar MD Carotid Artery Ultrasound 09/03/17 0000 Signed Impressions: Service Date/Time: Sunday, September 03, 2017 19:03 - CONCLUSION: No hemodynamically significant stenosis in either carotid artery. Momo Rebollar MD PE at Discharge AAOx3 PERRLA Clear lungs BL S1S2 RRR, no MRG abdomen soft, nt, nd Pt update on day of discharge The patient denies chest pain or shortness of breath. No further episodes of confusion. The pressure much improved, however elevated today at 164/65. Repeat blood pressure showed a blood pressure 129/66. The patient has been started on amlodipine and will continue. Cholesterol shows an LDL cholesterol of 125 with a total cholesterol of 188, normal triglycerides and low HDL cholesterol of 36.2. Pt Condition on Discharge: Stable Discharge Disposition: Discharge Home Discharge Time: <= 30 minutes Discharge Instructions DIET: Follow Instructions for: Heart Healthy Diet Activities you can perform: Regular-No Restrictions Activities to Avoid: Strenuous Activity Follow up Referrals: Neurology PCP Follow-up - 2 Weeks New Medications: Atorvastatin (Lipitor) 20 Mg Tab 20 MG PO HS for Cholesterol Management, #30 TAB 0 Refills Amlodipine (Norvasc) 10 Mg Tab 10 MG PO DAILY for Blood Pressure Management, #31 TAB Aspirin (Px Aspirin) 325 Mg Tab 325 MG PO DAILY for Blood Clot Prevention, #31 TAB Continued Medications: Multiple Vitamin (Multi Vitamin Mens) 1 Tab Tab Discontinued Medications: Aspirin (Aspirin Children's) 81 Mg Chew 81 MG PO DAILY, TAB 0 Refills Mejia Madrid MD Sep 05, 2017 17:47
== END 2017-09-05 18:42 | disposition home or self-care (01) | DRG 305 ==
LOC: NEPE 18:21 → NEDA 20:58 → N04B 21:59
PROVIDERS: ADMIT Hospitalist; ATTEND Hospitalist
DX: I16.1 Hypertensive emergency (principal); I67.4 Hypertensive encephalopathy; R00.1 Bradycardia, unspecified; R74.8 Abnormal levels of other serum enzymes; E78.5 Hyperlipidemia, unspecified; Z79.82 Long term (current) use of aspirin
CPT/HCPCS: 70450; 70544; 70551; 71010; 78452; 80048; 80053; 80061; 82550; 83880; 84484; 85025; 85610; 85730; 93005; 93017; 93306; 93880; 99285; A9502; J1644; J2785; J7030